=== PATIENT | female | born 1995 | race Caucasian/White ===

== ENCOUNTER 2016-08-26 18:07 | Emergency (ER) | payer BC ==
[~2016-08-26] VITALS: Ht 172.7 cm; Wt 77.1 kg
[2016-08-26 18:30] VITALS: BP 137/79
--- NOTE | 2016-08-26 18:30 | PHYS DOC ---
Adult General Chief Complaint Chief Complaint: TOE PROBLEM HPI HPI Patient is a 20 year old female presents to the emergency department with complaints of left great toe pain. She states yesterday she dropped a "college textbook" on her great toe. She has been ambulatory on the extremity since the incident. She is using ibuprofen [id number] for symptom management. Review of Systems Review of Systems Musculoskeletal: Left great toe pain Integument: Ecchymosis to the left great toe Current Medications Current Medications Current Medications Medications (Trade) Dose Ordered Sig/Abdirizak Start Time Stop Time Status Last Admin Dose Admin Ceftriaxone Sodium (Rocephin Im) 1 gm 1X ONCE 08/26/16 19:00 08/26/16 19:01 Cancel Tramadol HCl (Ultram) 50 mg 1X ONCE 08/26/16 18:45 08/26/16 18:46 DC 08/26/16 18:46 50 MG Allergies Allergies Allergies Coded Allergies Type Severity Reaction Last Updated Verified No Known Drug Allergies 08/26/16 No Physical Exam Physical Exam Skin: Warm, dry, ecchymosis left great toe Extremities: Left great toe, no obvious deformity. There is ecchymosis on the dorsal aspect of the toe with mild tenderness to palpate over the proximal phalanx. She has no pain to palpate over the MTP. The remainder left foot exam unremarkable. Or vascular intact distally. Current Patient Data Vital Signs Vital Signs Date Time Temp Pulse Resp B/P (MAP) Pulse Ox O2 Delivery O2 Flow Rate FiO2 08/26/16 18:30 98.3 76 20 98 Room Air 98.3 EKG EKG [] Radiology/Procedures Radiology/Procedures Left foot x-ray reviewed by Dr. brooke emergency physician, no acute changes [] Course & Med Decision Making Course & Med Decision Making Pertinent Labs and Imaging studies reviewed. (See chart for details) [] Dragon Disclaimer Dragon Disclaimer This electronic medical record was generated, in whole or in part, using a voice recognition dictation system. Departure Departure Impression: Primary Impression: Contusion, toe Disposition: HOME, SELF-CARE Condition: GOOD Referrals: NO PCP (PCP) Patient Instructions: Contusion Additional Instructions: Ice and elevate the affected area as needed. Ibuprofen [id number] as labeled and is indicated for symptom management. CHAD LEDEZMA APRN Aug 26, 2016 18:30
[2016-08-26] MEDS ORDERED: traMADol 50 MG TABLET PO ONE (18:45)
[2016-08-26] MEDS ORDERED: cefTRIAXone IM 1 GM VIAL IM ONE (19:00)
--- NOTE | 2016-08-27 08:36 | RAD ---
Indication injury, pain. An AP view of the left foot was obtained as well as additional oblique and lateral imaging targeted to the great toe. no bony abnormality is seen
== END 2016-08-26 18:57 | disposition home or self-care (01) ==
LOC: EDBD 18:07 → ER 18:07
DX: S90.112A Contusion of left great toe without damage to nail, initial encounter (principal); W20.8XXA Other cause of strike by thrown, projected or falling object, initial encounter; Y93.89 Activity, other specified; Y99.8 Other external cause status; Y92.89 Other specified places as the place of occurrence of the external cause
CPT/HCPCS: 73660; 99284

== ENCOUNTER 2016-12-30 12:05 | Emergency (ER) | payer OTHER, BC ==
[~2016-12-30] VITALS: Ht 172.7 cm; Wt 81.6 kg
[2016-12-30 12:50] VITALS: BP 145/88
--- NOTE | 2016-12-30 13:32 | RAD ---
3 views left knee 12/30/2016 2:14 PM Indication: pain Comparison: None Findings: There is no fracture or dislocation identified. Articular surfaces are uninterrupted. Soft tissues are unremarkable. Impression: No evidence of acute osseous abnormality
[2016-12-30] MEDS ORDERED: NAPR500T8 PO (13:44)
--- NOTE | 2016-12-30 13:45 | PHYS DOC ---
Past Medical History Past Medical History: No Pertinent History Past Surgical History: Cholecystectomy Alcohol Use: None Drug Use: None Adult General Chief Complaint Chief Complaint: KNEE INJURY HPI HPI Patient is a 21 year old female who presents with mild left anterior knee pain that began today. Patient states she was at work squatting when she heard a loud pop sound from her left knee. Patient denies falling. Patient states her pain is worse on range of motion. Review of Systems Review of Systems Constitutional: Denies fever or chills [] Musculoskeletal: left anterior knee pain Integument: Denies rash or skin lesions [] Neurologic: Denies headache, focal weakness or sensory changes [] All other systems were reviewed and found to be within normal limits, except as documented in this note. Allergies Allergies Allergies Coded Allergies Type Severity Reaction Last Updated Verified No Known Drug Allergies 08/26/16 No Physical Exam Physical Exam Constitutional: Well developed, well nourished, no acute distress, non-toxic appearance. [] Skin: Warm, dry, no erythema, no rash. [] Back: No tenderness, no CVA tenderness. [] Extremities: Left knee with no obvious deformity. Full range of motion to the left knee, negative Jamey sign and negative Emily's sign negative anterior- posterior drawer sign to the left knee. +2 left pedal pulse. Cap refill less than 2 seconds the left toes. Neurologic: Alert and oriented X 3, normal motor function, normal sensory function, no focal deficits noted. [] Psychologic: Affect normal, judgement normal, mood normal. [] Current Patient Data Vital Signs Vital Signs Date Time Temp Pulse Resp B/P (MAP) Pulse Ox O2 Delivery O2 Flow Rate FiO2 12/30/16 12:50 98.1 89 16 100 Room Air 98.1 EKG EKG [] Radiology/Procedures Radiology/Procedures []PROCEDURE: KNEE LEFT 4V 3 views left knee 12/30/2016 2:14 PM Indication: pain Comparison: None Findings: There is no fracture or dislocation identified. Articular surfaces are uninterrupted. Soft tissues are unremarkable. Impression: No evidence of acute osseous abnormality DICTATED and SIGNED BY: ANDREW FAIRCHILD MD DATE: 12/30/16 2390 CC: DUGLAS MOLINA APRN; NO PCP ~ Course & Med Decision Making Course & Med Decision Making Pertinent Labs and Imaging studies reviewed. (See chart for details) Patient is in the ED with left knee pain, that began after squatting. . Left knee x-rays interpreted by radiologist are negative for any acute findings. Left knee Juan Miguel wrap, neurovascular exam is intact. Ice elevation encouraged. Naproxen for pain. Follow-up with open one week. [place] Disclaimer Dragon Disclaimer This electronic medical record was generated, in whole or in part, using a voice recognition dictation system. Departure Departure Impression: Primary Impression: Sprain of left knee Disposition: HOME, SELF-CARE Condition: STABLE Referrals: NO PCP (PCP) PATRICIA SUGGS MD follow up in one week Patient Instructions: Knee Sprain, [id number] Additional Instructions: You were seen for left knee sprain. Your left knee x-rays are negative for any acute findings. Wear the juan miguel wrap provided as tolerated and needed. Ice elevate the extremity. Follow-up with the provided orthopedic doctor in one week if pain continues. Scripts Naproxen (NAPROXEN) 500 Mg Tablet.dr 1 TAB PO BID, #20 TAB 0 Refills Prov: DUGLAS MOLINA APRN 12/30/16 Problem Qualifiers Primary Impression: Sprain of left knee Encounter type: initial encounter Involved ligament of knee: unspecified ligament Qualified Codes: S83.92XA - Sprain of unspecified site of left knee, initial encounter DUGLAS MOLINA APRN Dec 30, 2016 13:45
== END 2016-12-30 13:57 | disposition home or self-care (01) ==
LOC: ER 12:05
DX: S83.92XA Sprain of unspecified site of left knee, initial encounter (principal); X58.XXXA Exposure to other specified factors, initial encounter; Y93.89 Activity, other specified; Y92.69 Other specified industrial and construction area as the place of occurrence of the external cause; Y99.8 Other external cause status
CPT/HCPCS: 73564; 99284